=== PATIENT | female | born 1985 | race Caucasian/White ===

== ENCOUNTER 2017-11-15 07:38 | Observation (INO) | payer MEDICAID ==
[~2017-11-15] VITALS: Ht 152.4 cm; Wt 83.0 kg
[2017-11-15] MEDS ORDERED: PNV1TABL76 MT (08:32)
== END 2017-11-15 09:30 | disposition home or self-care (01) ==
LOC: L&D 07:38
PROVIDERS: ADMIT Obstetrics & Gynecology; ATTEND Obstetrics & Gynecology
DX: O46.93 Antepartum hemorrhage, unspecified, third trimester (principal); Z3A.34 34 weeks gestation of pregnancy
CPT/HCPCS: 76815; 76818; 99281; G0378